=== PATIENT | male | born 1980 | race Caucasian/White ===

== ENCOUNTER → 2017-04-01 | Outpatient (CLI) | payer BC ==
[~2017-04-01] MED LIST: CELEBREX200 MG PO; COZAAR100 MG PO; HYDROCODON-ACE1 EAC7 PO; PRILOSEC40 MG PO; VICODIN 5-3001 EACH PO
== END | disposition home or self-care (01) ==
LOC: CDC 11:52
DX: R94.31 Abnormal electrocardiogram [ECG] [EKG] (principal); K43.9 Ventral hernia without obstruction or gangrene
CPT/HCPCS: 93000

== ENCOUNTER 2017-04-14 06:43 | Day surgery (SDC) | payer BC ==
[~2017-04-14] VITALS: Ht 177.8 cm; Wt 80.0 kg
[~2017-04-14 06:43] MED LIST changes: +NEXIUM20 MG PO
[2017-04-14 07:13] LABS: POINT-OF-CARE METER ID UU14174212
[2017-04-14] MEDS ORDERED: ZYRTEC10 M2 PO (07:17)
[2017-04-14 07:23] VITALS: BP 140/84
[2017-04-14 11:58] VITALS: BP 125/75
[2017-04-14 13:00] VITALS: BP 126/68
== END 2017-04-14 13:25 | disposition home or self-care (01) ==
LOC: SDC 06:43
PROVIDERS: Surgery
DX: K45.8 Other specified abdominal hernia without obstruction or gangrene (principal); K43.9 Ventral hernia without obstruction or gangrene; Z98.84 Bariatric surgery status; Z86.79 Personal history of other diseases of the circulatory system; Z88.0 Allergy status to penicillin
CPT/HCPCS: 82948; C1781; J0131; J0330; J1100; J1580; J1644; J2250; J2405; J2710; J3010; J7050; S0020

== ENCOUNTER 2017-06-16 16:00 | Emergency (ER) | payer BC ==
[~2017-06-16] VITALS: Ht 177.8 cm; Wt 77.3 kg
[~2017-06-16 16:00] MED LIST changes: +ZYRTEC10 M2 PO
[2017-06-16] MEDS ORDERED: BENADRYL ALLERG25 MG PO (19:10)
[2017-06-16] MEDS ORDERED: EPIPEN ADU0.3 MG/0.3 IM (19:10)
[2017-06-16 19:26] VITALS: BP 134/80
== END 2017-06-16 19:27 | disposition home or self-care (01) ==
LOC: EME 16:00
DX: T78.40XA Allergy, unspecified, initial encounter (principal); T63.441A Toxic effect of venom of bees, accidental (unintentional), initial encounter; Z91.030 Bee allergy status; Z88.0 Allergy status to penicillin; I10 Essential (primary) hypertension; K21.9 Gastro-esophageal reflux disease without esophagitis; Z98.84 Bariatric surgery status
CPT/HCPCS: 99281; 99284; J1200; J2930